=== PATIENT | male | born 1995 | race Two or more races ===

== ENCOUNTER 2020-03-23 22:02 | Emergency (ER) | payer OTHER ==
[~2020-03-23] VITALS: Ht 175.3 cm; Wt 79.1 kg
[2020-03-23 22:04] VITALS: BP 144/76
[2020-03-23] MEDS ORDERED: LIDOCAINE-MPF 1%, 5ML INFIL ONE (22:30)
[2020-03-23] MEDS ORDERED: LIDOCAINE-MPF 1%, 5ML ONE (22:36)
[2020-03-23] MEDS ORDERED: NEOSPORIN OINT. PKT 1 PACKET ONE (23:05)
== END 2020-03-23 23:25 | disposition home or self-care (01) ==
LOC: ED 22:39
DX: S61.412A Laceration without foreign body of left hand, initial encounter (principal); X58.XXXA Exposure to other specified factors, initial encounter; Y93.89 Activity, other specified; Y92.098 Other place in other non-institutional residence as the place of occurrence of the external cause; Y99.8 Other external cause status
CPT/HCPCS: 12002; 99283